=== PATIENT | female | born 1965 | race Hispanic/Latino ===

== ENCOUNTER 2019-01-08 13:23 | Emergency (ER) | payer OTHER, SELFPAY ==
--- OUTSIDE RECORDS SUMMARY | 2019-01-08 13:31 | XMS REPORT | Clinical Summary ---
:1965 Author Organization [facility] Address [address] [place] [address] Care Team Providers Name Role Phone Juanito Resendiz MD Primary Care Provider Allergies Active Allergy Reactions Severity Noted Date Comments Penicillins High 01/21/2017 Medications Medication Sig Dispensed Refills Start End Status Date Date metFORMIN (GLUCOPHAGE) Take 500 mg by 0 Active 500 mg tablet mouth 2 (two) times a day with meals. omeprazole (PriLOSEC) Take 20 mg by 0 Active 20 MG capsule mouth daily. meloxicam (MOBIC) 7.5 Take 1 tablet 10 tablet 0 Active mg tablet (7.5 mg total) 8 by mouth daily as needed for moderate pain for up to 10 doses. gabapentin (NEURONTIN) Take 600 mg by 0 Active 600 mg tablet mouth 3 (three) times a day. levalbuterol (XOPENEX Inhale 2 puffs 0 Active HFA) 45 mcg/actuation every 6 (six) inhaler hours as needed for wheezing or shortness of breath. ipratropium-albuterol Take 3 mL by 0 Active (DUO-NEB) 0.5-2.5 nebulization 4 mg/mL nebulizer (four) times a day. methylPREDNISolone TAKE 6 TABLETS 0 Active (MEDROL DOSEPAK) 4 mg ON DAY 1 9 tablet DIRECTED ON PACKAGE AND DECREASE BY 1 TAB EACH DAY FOR A TOTAL OF 6 DAYS fluticasone propionate SPRAY 2 SPRAYS 16 mL 0 Active (FLONASE) 50 INTO EACH 9 mcg/actuation nasal NOSTRIL EVERY spray DAY ondansetron (ZOFRAN, Take 1 tablet (4 20 tablet 0 Discontinued HYDROCHLORIDE,) 4 mg total) by 8 018 MG tabletIndications: mouth every 8 Partial tear of left (eight) hours as rotator cuff needed for nausea or vomiting. ondansetron (ZOFRAN) 4 Take 1 tablet (4 6 tablet 0 MG tablet mg total) by 8 018 mouth every 12 (twelve) hours as needed for nausea or vomiting for up to 3 days. azithromycin Take first 2 6 tablet 0 (ZITHROMAX) 250 MG tablets 9 019 tablet together, then 1 every day until finished. fluticasone propionate 2 sprays (100 15.8 mL 0 Discontinued (FLONASE) 50 mcg total) by 9 019 mcg/actuation nasal Each Nare route spray daily. oxymetazoline (AFRIN, 2 sprays into 15 mL 0 OXYMETAZOLINE,) 0.05 % each nostril 2 9 019 nasal spray (two) times a day for 5 days. fluticasone propionate SPRAY 2 SPRAYS 16 mL 0 Discontinued (FLONASE) 50 INTO EACH 9 019 mcg/actuation nasal NOSTRIL EVERY spray DAY Active Problems Problem Noted Date Diabetic polyneuropathy associated with type 2 diabetes mellitus 01/01/2019 Tethered cord 01/01/2019 Mixed conductive and sensorineural hearing loss of both ears 11/06/2018 Chronic mucoid otitis media of left ear 11/06/2018 Partial tear of left rotator cuff 09/11/2017 Sprain of left rotator cuff capsule 09/11/2017 Acute pain of left shoulder 09/04/2017 Encounters Date Type Specialty Care Team Description 01/06/2019 Refill Otolaryngology Henrry Barton MD 01/01/2019 Procedure visit Neurology Jannie, Diabetic polyneuropathy associated with type 2 diabetes mellitus (HCC) (Primary Dx); MD Erika Tethered cord (HCC) 12/03/2018 Refill Otolaryngology Henrry Barton MD 12/01/2018 Hospital Encounter Radiology Jordan, Ray Lumbar radiculopathy Hansel, MD 12/01/2018 Hospital Encounter Radiology Juanito Resendiz, Screening breast MD examination 11/24/2018 Transcribe Orders Access Juanito Resendiz Screening breast MD examination (Primary Dx) 11/24/2018 Transcribe Orders Access Aruna Tobin Screening breast Danisha, ACNP examination (Primary Dx) 11/20/2018 Transcribe Orders Access Keegan Ortega Lumbar radiculopathy MD Hansel (Primary Dx) 11/06/2018 Office Visit Otolaryngology Mick, Bilateral hearing loss, unspecified hearing loss type (Primary Dx); MD Henrry Chronic mucoid otitis media of left ear; Mixed conductive and sensorineural hearing loss of both ears; Conductive hearing loss, bilateral 09/27/2018 Travel 09/26/2018 - Emergency Emergency Medicine Carlos Singh MD Acute otitis media, unspecified otitis media type (Primary Dx); 09/27/2018 Chest pain, unspecified type; Hyperglycemia 05/19/2018 Emergency Emergency Medicine Sudhir Blanca Acute viral syndrome DO Cortez (Primary Dx) 04/21/2018 Hospital Encounter Radiology Juanito Resendiz Dorsalgia MD 04/21/2018 Transcribe Orders Access Aruna Tobin (Primary Danisha, ACNP Dx) after 01/07/2018 Family History Medical History Relation Name Comments Stroke Father CABG/Stent Mother Diabetes Mother Heart disease Mother Relation Name Status Comments Father Alive Mother Alive Social History Tobacco Use Types Packs/Day Years Used Date Former Smoker Cigarettes 5 Smokeless Tobacco: Former User Alcohol Use Drinks/Week oz/Week Comments No Sex Assigned at Date Recorded Not on file Job Start Date Occupation Industry Not on file Not on file Not on file Travel History Travel Start Travel End No recent travel history available. Last Filed Vital Signs Vital Sign Reading Time Taken Blood Pressure 155/75 09/27/2018 12:26 AM THREAD DRESSER Pulse 85 09/27/2018 12:26 AM THREAD DRESSER Temperature 37 C (98.6 F) 09/27/2018 12:26 AM THREAD DRESSER Respiratory Rate 18 09/27/2018 12:26 AM THREAD DRESSER Oxygen Saturation 98% 09/27/2018 12:26 AM THREAD DRESSER Inhaled Oxygen Concentration - - Weight 84.7 kg (186 lb 12.8 oz) 11/06/2018 1:39 PM CDT Height 149.9 cm (4' 11") 11/06/2018 1:39 PM CDT Body Mass Index 37.73 11/06/2018 1:39 PM CDT Plan of Treatment Health Maintenance Due Date Last Done Comments DIABETIC RETINAL EYE EXAM 1965 DIABETIC FOOT EXAM 1977 URINE MICROALBUMIN 1977 COLON CANCER SCREENING 2017 SHINGLES VACCINES (#1) 2017 INFLUENZA VACCINE 03/05/2019 BREAST CANCER SCREENING 12/01/2020 12/01/2018, 12/17/2017, 09/20/2014, Additional history exists Implants Implanted Type Area Junior Automation Engineer Device Shelf Model / Identifier Expiration Serial / Date Lot oNlalleulalia [id number], Aspirating Ablator 90 - [id number] Left: ARTHREX 09/04 AR [id number] / Implanted: Qty: 1 on 10/25/2017 by Jaren Reed MD IMPLANT Shoulder ORTHOPEDICS / DEVICES [id number] Procedures Procedure Name Priority Date/Time Associated Diagnosis Comments MRI LUMBAR SPINE WO Routine 12/01/2018 11:26 Lumbar radiculopathy Results for this CONTRAST AM CDT procedure are in the results section. MAMMO BREAST SCREEN Routine 12/01/2018 10:15 Screening breast Results for this TOMOSYNTHESIS AM CDT examination procedure are in BILATERAL the results section. COMPREHENSIVE HEARING Routine 11/06/2018 1:53 Chronic mucoid otitis TEST PM CDT media of left ear ECG ED PRELIMINARY Routine 09/26/2018 9:05 Results for this INTERPRETATION PM THREAD DRESSER procedure are in the results section. ESTIMATED GFR STAT 09/26/2018 9:05 Results for this PM THREAD DRESSER procedure are in the results section. B NATRIURETIC PEPTIDE STAT 09/26/2018 9:05 Results for this PM THREAD DRESSER procedure are in the results section. TROPONIN STAT 09/26/2018 9:05 Results for this PM THREAD DRESSER procedure are in the results section. CREATINE KINASE, TOTAL STAT 09/26/2018 9:05 Results for this (CPK) PM THREAD DRESSER procedure are in the results section. PARTIAL THROMBOPLASTIN STAT 09/26/2018 9:05 Results for this TIME (PTT) PM THREAD DRESSER procedure are in the results section. PROTHROMBIN TIME WITH STAT 09/26/2018 9:05 Results for this INR PM THREAD DRESSER procedure are in the results section. COMPREHENSIVE STAT 09/26/2018 9:05 Results for this METABOLIC PANEL PM THREAD DRESSER procedure are in the results section. HC COMPLETE BLD COUNT STAT 09/26/2018 9:05 Results for this W/AUTO DIFF PM THREAD DRESSER procedure are in the results section. XR CHEST 2 VW STAT 09/26/2018 8:41 Results for this PM THREAD DRESSER procedure are in the results section. ECG 12-LEAD STAT 09/26/2018 8:22 Results for this PM THREAD DRESSER procedure are in the results section. CT ABDOMEN PELVIS W STAT 05/19/2018 6:41 Results for this CONTRAST PM CDT procedure are in the results section. URINALYSIS SCREEN AND STAT 05/19/2018 5:45 Results for this MICROSCOPY, WITH PM CDT procedure are in REFLEX TO CULTURE the results section. XR PELVIS 1 OR 2 VW STAT 05/19/2018 4:50 Results for this PM CDT procedure are in the results section. ESTIMATED GFR STAT 05/19/2018 4:13 Results for this PM CDT procedure are in the results section. CREATINE KINASE, TOTAL STAT 05/19/2018 4:13 Results for this (CPK) PM CDT procedure are in the results section. TROPONIN STAT 05/19/2018 4:13 Results for this PM CDT procedure are in the results section. LIPASE LEVEL STAT 05/19/2018 4:13 Results for this PM CDT procedure are in the results section. COMPREHENSIVE STAT 05/19/2018 4:13 Results for this METABOLIC PANEL PM CDT procedure are in the results section. HC COMPLETE BLD COUNT STAT 05/19/2018 4:13 Results for this W/AUTO DIFF PM CDT procedure are in the results section. ECG 12-LEAD STAT 05/19/2018 3:57 Results for this PM CDT procedure are in the results section. ECG ED PRELIMINARY Routine 05/19/2018 3:50 Results for this INTERPRETATION PM CDT procedure are in the results section. POC GLUCOSE Routine 05/19/2018 3:44 Results for this PM CDT procedure are in the results section. XR LUMBAR SPINE Routine 04/21/2018 10:30 Dorsalgia Results for this COMPLETE 4+ VW AM CDT procedure are in the results section. after 01/07/2018 Results MRI Lumbar Spine Wo Contrast (12/01/2018 11:26 AM CDT) Specimen Narrative Performed At EXAMINATION: MRI LUMBAR SPINE WO CONTRAST [facility] CLINICAL HISTORY: M54.16 Radiculopathylumbar region, LUMBAR RADICULOPATHY COMPARISON:Lumbar spine x-rays from April 21, 2018. TECHNIQUE: Multiplanar multisequence noncontrast enhanced examination was performed of the Lumbar spine. FINDINGS: L5-S1: There is mild bulge and facet hypertrophy. 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 L4-5: There is mild bulge and facet hypertrophy without significant canal or foramen stenosis. L3-4: There is decreased T2 signal in the discs. There is bulge and facet hypertrophic changes. There is anterior and posterolateral indentation on the subarachnoid space with mild trefoil shape narrowing. 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 L2-3: There is mild bulge and facet hypertrophy. There is mild narrowing of the AP dimension of the central subarachnoid space. L1-2: There is mild bulge and facet hypertrophy. There is a tiny central protrusion. The distal cord ends at the L3 level. There is a partially fatty filum terminale. There is enlargement of the subarachnoid space in the lower lumbar region and there appears to be posterior location of the nerves in the subarachnoid space with a elongated course to exit the subarachnoid space. Portions of the bone surrounding the upper sacrum are absent, consistent with a congenital variant of normal. There are degenerative changes of the sacroiliac joints. The study was not performed for good evaluation of the soft tissue structures in the abdomen and pelvis. IMPRESSION: Low-lying cord with partially fatty filum terminale. Recommend correlation for cord and nerve root tethering. Degenerative changes in lumbar spine and upper sacroiliac joints. [facility]-[id number] Procedure Note Hm Interface, Radiology Results - 12/01/2018 1:17 PM CDT EXAMINATION: MRI LUMBAR SPINE WO CONTRAST CLINICAL HISTORY: M54.16 Radiculopathy lumbar region, LUMBAR RADICULOPATHY COMPARISON: Lumbar spine x-rays from April 21, 2018. TECHNIQUE: Multiplanar multisequence noncontrast enhanced examination was performed of the Lumbar spine. FINDINGS: L5-S1: There is mild bulge and facet hypertrophy. 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 L4-5: There is mild bulge and facet hypertrophy without significant canal or foramen stenosis. L3-4: There is decreased T2 signal in the discs. There is bulge and facet hypertrophic changes. There is anterior and posterolateral indentation on the subarachnoid space with mild trefoil shape narrowing. 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 L2-3: There is mild bulge and facet hypertrophy. There is mild narrowing of the AP dimension of the central subarachnoid space. L1-2: There is mild bulge and facet hypertrophy. There is a tiny central protrusion. The distal cord ends at the L3 level. There is a partially fatty filum terminale. There is enlargement of the subarachnoid space in the lower lumbar region and there appears to be posterior location of the nerves in the subarachnoid space with a elongated course to exit the subarachnoid space. Portions of the bone surrounding the upper sacrum are absent, consistent with a congenital variant of normal. There are degenerative changes of the sacroiliac joints. The study was not performed for good evaluation of the soft tissue structures in the abdomen and pelvis. IMPRESSION: Low-lying cord with partially fatty filum terminale. Recommend correlation for cord and nerve root tethering. Degenerative changes in lumbar spine and upper sacroiliac joints. [facility]-[id number] Performing Organization Address [facility] Phone Number [facility] [address] [place] [address] Mammo Breast Screen Tomosynthesis Bilateral (12/01/2018 10:15 AM CDT) Specimen Narrative Performed At EXAMINATION: MAMMO BREAST SCREEN TOMOSYNTHESIS BILATERAL [facility] COMPARISON:Mammograms dated 09/2014 through 12/2017 TECHNIQUE: Bilateral digital screening mammography was performed with tomosynthesis and interpreted using computer-assisted detection. CLINICAL HISTORY: 53-year-old female with intermittent left breast pain. No personal or family history of breast malignancy. The patient presents for routine screening. FINDINGS: There are scattered fibroglandular densities. Stable size asymmetry of the bilateral breasts, right smaller than left. There are no new suspicious masses, calcifications or distortions in either breast.There has been no significant interval change compared to prior. IMPRESSION: No specific mammographic features of breast malignancy. BI-RADS 2:BENIGN Recommend comparison with physical examination. In the absence of new clinical findings, the patient should return for bilateral screening mammography in 1 year. This facility is accredited by the [employer] for Mammography. A negative x-ray report should not delay biopsy if a dominant or clinically suspicious mass is present.Not all cancers are identified by x-ray. [id number] Performing Organization Address [facility] Phone Number [facility] [address] [place] [address] Comprehensive hearing test (11/06/2018 1:53 PM CDT)ECG ED Preliminary Interpretation - Not an Order (09/26/2018 9:05 PM THREAD DRESSER)Only the most recent of2 resultswithin the time period is included. Narrative Performed At Carlos Singh MD 09/27/20183:26 AM ECG ED Preliminary Interpretation - Not an Order Performed by: Carlos Singh MD Authorized by: Carlos Singh MD ECG reviewed by ED Physician in the absence of a diagnostic tech: yes Interpretation: Interpretation: normal Rate: ECG rate:79 ECG rate assessment: normal Rhythm: Rhythm: sinus rhythm Ectopy: Ectopy: none QRS: QRS axis:Normal QRS intervals:Normal Conduction: Conduction: normal ST segments: ST segments:Normal T waves: T waves: inverted Inverted:V2 Comments: Poor R wave progression Estimated GFR (09/26/2018 9:05 PM THREAD DRESSER)Only the most recent of2 resultswithin the time period is included. Pathologist [facility] Estimated GFR >=90 mL/min/1.73 [facility] Comment: m2 [facility] CatergoryUnitsInterpretation G1 >=90 Normal or high G2 60-89Mildly decreased [id number] to moderately decreased O3g55-71Tnkknsjoti to severely decreased G4 15-29Severely decreased G5 <15Kidney failure The eGFR was calculated using the Chronic Kidney Disease Epidemiology Collaboration (CKD-EPI) equation. Interpretation is based on recommendations of the National Kidney Foundation-Kidney Disease Outcomes Quality Initiative (NKF-KDOQI) published in 2014. Specimen Plasma specimen Performing Organization Address City/State/Zipcode Phone Number [facility] DEPARTMENT OF PATHOLOGY AND [address] [place] [address] GENOMIC MEDICINE [facility] [address] [place] [address] HOSPITAL Troponin (09/26/2018 9:05 PM THREAD DRESSER)Only the most recent of2 resultswithin the time period is included. Pathologist [facility] Troponin <0.300 0.000 - 0.300 [facility] Comment: ng/mL [facility] 0.30 - 1.49 ng/mlMay indicate increased risk of acute coronary syndrome. >=1.5 ng/mlConsistent with acute myocardial infarction. The diagnostic value of a single normal or non-diagnostic result is questionable.Serial samples at 2-6 hour intervals are required to rule out acute myocardial injury. Specimen Plasma specimen Performing Organization Address [facility] Phone Number [facility] DEPARTMENT PATHOLOGY AND [address] [place] [address] Partial thromboplastin time, activated (09/26/2018 9:05 PM THREAD DRESSER) [facility] PTT 28.0 23.0 - 36.0 [facility] Comment: [facility] PTT therapeutic range for unfractionated heparin is 61.0-112.0 seconds which corresponds to Anti-Xa 0.3-0.7 U/ml. Specimen Blood Performing Organization Address [facility] Phone Number [facility] DEPARTMENT OF PATHOLOGY AND [address] [place] [address] Prothrombin time with INR (09/26/2018 9:05 PM THREAD DRESSER) [facility] Prothrombin time 12.3 11.5 - 14.5 [facility] INR 0.9 [facility] Comment: [facility] The International Normalized Ratio (INR) is a therapeutic [facility] monitoring tool for patients who are stable on oral anticoagulant therapy. An INR of 2.0-3.0 is suggested for deep vein thrombosis/pulmonary embolism. Specimen Blood Performing Organization Address [facility] Phone Number [facility] DEPARTMENT PATHOLOGY AND [address] [place] [address] CBC with platelet and differential (09/26/2018 9:05 PM THREAD DRESSER)Only the most recent of2 resultswithin the time period is included. [facility] WBC 7.88 4.50 - 11.00 k/uL [facility] RBC 4.93 4.20 - 5.50 m/uL [facility] HGB 13.1 12.0 - 16.0 g/dL [facility] HCT 40.2 37.0 - 47.0 % [facility] MCV 81.5 (L) 82.0 - 100.0 fL [facility] MCH 26.6 (L) 27.0 - 34.0 pg [facility] MCHC 32.6 31.0 - 37.0 g/dL [facility] RDW - SD 38.2 37.0 - 55.0 fL [facility] MPV 10.2 8.8 - 13.2 fL [facility] Platelet count 277 150 - 400 k/uL [facility] Nucleated RBC 0.00 /100 WBC [facility] Neutrophils 48.6 39.0 - 69.0 % [facility] Lymphocytes 39.7 25.0 - 45.0 % [facility] Monocytes 5.7 0.0 - 10.0 % [facility] Eosinophils 4.9 0.0 - 5.0 % [facility] Basophils 0.6 0.0 - 1.0 % [facility] Specimen Blood Performing Organization Address City/[facility] Phone Number [facility] DEPARTMENT PATHOLOGY AND [address] [place] [address] B natriuretic peptide (09/26/2018 9:05 PM THREAD DRESSER) Pathologist [facility] BNP 11 0 - 100 pg/mL [facility] Specimen Blood Performing Organization Address [facility] Phone Number [facility] DEPARTMENT OF PATHOLOGY AND [address] [place] [address] Creatine kinase, total (CPK) (09/26/2018 9:05 PM THREAD DRESSER)Only the most recent of2 resultswithin the time period is included. Pathologist [facility] Creatine kinase 57 26 - 192 U/L [facility] Specimen Plasma specimen Performing Organization Address [facility] Phone Number [facility] DEPARTMENT OF PATHOLOGY AND [address] [place] [address] Comprehensive metabolic panel (09/26/2018 9:05 PM THREAD DRESSER)Only the most recent of2 resultswithin the time period is included. Sodium 138 135 - 148 [facility] mEq/L [facility] Potassium 3.9 3.5 - 5.0 [facility] mEq/L [facility] Chloride 100 98 - 112 mEq/L [facility] CO2 28 24 - 31 mEq/L [facility] Anion gap 10@ANIO 7 - 15 mEq/L [facility] BUN 11 6 - 20 mg/dL [facility] Creatinine 0.50 0.50 - 0.90 [facility] mg/dL [facility] Glucose 392 (H) 65 - 99 mg/dL [facility] Calcium 9.7 8.3 - 10.2 [facility] mg/dL [facility] Protein 7.8 6.3 - 8.3 g/dL [facility] Comment: [facility] 4.6-7.0 g/dL 1 week 4.4-7.6 g/dL 7 months-1year5.1-7.3 g/dL 1-2 years5.6-7.5 g/dL >3 years6.0-8.0 g/dL 18-150 6.3-8.3 g/dL Albumin 4.3 3.5 - 5.0 g/dL [facility] A/G ratio 1.2 0.7 - 3.8 [facility] Alkaline phosphatase 114 (H) 35 - 104 U/L [facility] AST 16 10 - 35 U/L [facility] ALT 19 5 - 50 U/L [facility] Total bilirubin 0.3 0.0 - 1.2 [facility] mg/dL [facility] Specimen Plasma specimen Performing Organization Address City/State/Zipcode Phone Number [facility] DEPARTMENT OF PATHOLOGY AND [address] [place] [address] GENOMIC MEDICINE [facility] [address] XR Chest 2 Vw (09/26/2018 8:41 PM THREAD DRESSER) Specimen Narrative Performed At EXAMINATION:XR CHEST 2 VW [facility] CLINICAL HISTORY:cp TECHNIQUE:XR CHEST 2 VW COMPARISON:Chest radiograph dated 01/21/2017 FINDINGS: Lines/tubes:None. Heart and mediastinum:Unremarkable Lungs:The lungs are well inflated. There is no evidence of pneumonia or pulmonary edema. Pleura:There is no pleural effusion. There is no pneumothorax. Bones and Soft Tissues:There is partial fusion of the right fourth and fifth ribs. There is no acute or suspicious osseous abnormality. IMPRESSION: No acute cardiopulmonary abnormality. [facility]-[id number] Procedure Note Hm Interface, Radiology Results Incoming - 09/26/2018 8:57 PM THREAD DRESSER EXAMINATION: XR CHEST 2 VW CLINICAL HISTORY: cp TECHNIQUE: XR CHEST 2 VW COMPARISON: Chest radiograph dated 01/21/2017 FINDINGS: Lines/tubes: None. Heart and mediastinum: Unremarkable Lungs: The lungs are well inflated. There is no evidence of pneumonia or pulmonary edema. Pleura: There is no pleural effusion. There is no pneumothorax. Bones and Soft Tissues: There is partial fusion of the right fourth and fifth ribs. There is no acute or suspicious osseous abnormality. IMPRESSION: No acute cardiopulmonary abnormality. [facility]-[id number] Performing Organization Address City/[facility] Phone Number [facility] [address] [place] [address] ECG 12 lead (09/26/2018 8:22 PM THREAD DRESSER)Only the most recent of2 resultswithin the time period is included. Ventricular rate 79 [facility] Atrial rate 79 [facility] CO interval 158 [facility] QRSD interval 94 [facility] QT interval 396 [facility] QTC interval 454 [facility] P axis 1 49 [facility] QRS axis 1 16 [facility] T wave axis 4 [facility] EKG impression Normal sinus [facility] rhythm-Nonspecific T wave abnormality-Abnormal ECG-In automated comparison with ECG of 19-MAY-2018 15:57,-No significant change was found- Specimen Narrative Performed At Performing Organization Address [facility] Phone Number [facility] Side.Cr [address] [place] [address] CT Abdomen Pelvis W Contrast (05/19/2018 6:41 PM CDT) Specimen Narrative Performed At EXAMINATION:[facility] CLINICAL HISTORY:Abd painunspecified, hx of hysterectomy TECHNIQUE: Multiple axial images of the abdomen and pelvis were obtained following intravenous administration of iodinated contrast. Sagittal and coronal computerized reformatted images were also obtained.Automatic exposure control and iterative reconstruction techniques used to reduce dose. COMPARISON:February 12, 2015 FINDINGS: Mild fatty infiltration of the liver without evidence of focal mass. The gallbladder, spleen, pancreas, adrenals and kidneys are within normal limits There is no evidence of appendicitis The small bowel and the colon are within normal limits Pelvis: No significant lymphadenopathy, solid masses or free fluid Degenerative changes are present throughout the bony structures without evidence of a suspicious focal lesion. Lung bases are clear IMPRESSION: Mild fatty infiltration liver. No acute abnormalities are identified [facility]-[id number] Procedure Note [facility], Radiology Results Incoming - 05/19/2018 6:46 PM CDT EXAMINATION: CT ABDOMEN PELVIS W CONTRAST CLINICAL HISTORY: Abd pain unspecified, hx of hysterectomy TECHNIQUE: Multiple axial images of the abdomen and pelvis were obtained following intravenous administration of iodinated contrast. Sagittal and coronal computerized reformatted images were also obtained.Automatic exposure control and iterative reconstruction techniques used to reduce dose. COMPARISON: February 12, 2015 FINDINGS: Mild fatty infiltration of the liver without evidence of focal mass. The gallbladder, spleen, pancreas, adrenals and kidneys are within normal limits There is no evidence of appendicitis The small bowel and the colon are within normal limits Pelvis: No significant lymphadenopathy, solid masses or free fluid Degenerative changes are present throughout the bony structures without evidence of a suspicious focal lesion. Lung bases are clear IMPRESSION: Mild fatty infiltration liver. No acute abnormalities are identified [facility]-[id number] Performing Organization Address City/State/Zipcode Phone Number [facility] [address] [place] [address] Urinalysis screen and microscopy, with reflex to culture (05/19/2018 5:45 PM CDT) Specimen site Clean catch [facility] DEPARTMENT OF PATHOLOGY AND GENOMIC MEDICINE Color, UA Yellow [facility] DEPARTMENT OF PATHOLOGY AND GENOMIC MEDICINE Appearance, UA Clear [facility] DEPARTMENT OF PATHOLOGY AND GENOMIC MEDICINE Specific gravity, UA 1.036 (H) 1.001 - 1.035 [facility] DEPARTMENT OF PATHOLOGY AND GENOMIC MEDICINE pH, UA 5.0 5.0 - 8.5 [facility] DEPARTMENT OF PATHOLOGY AND GENOMIC MEDICINE Protein, UA Negative Negative [facility] DEPARTMENT OF PATHOLOGY AND GENOMIC MEDICINE Glucose, UA 3+ (A) Negative [facility] DEPARTMENT OF PATHOLOGY AND GENOMIC MEDICINE Ketones, UA 2+ (A) Negative [facility] DEPARTMENT OF PATHOLOGY AND GENOMIC MEDICINE Bilirubin, UA Negative Negative [facility] DEPARTMENT OF PATHOLOGY AND GENOMIC MEDICINE Blood, UA Negative Negative [facility] DEPARTMENT OF PATHOLOGY AND GENOMIC MEDICINE Nitrite, UA Negative Negative [facility] DEPARTMENT OF PATHOLOGY AND GENOMIC MEDICINE Urobilinogen, UA Negative <2.0 [facility] DEPARTMENT OF PATHOLOGY AND GENOMIC MEDICINE Leukocyte esterase, Negative Negative [facility] DEPARTMENT OF UA PATHOLOGY AND GENOMIC MEDICINE Epithelial cells, UA Many /HPF [facility] DEPARTMENT OF PATHOLOGY AND GENOMIC MEDICINE WBC, UA 0-5 0 - 4 /HPF [facility] DEPARTMENT OF PATHOLOGY AND GENOMIC MEDICINE RBC, UA 0-5 0 - 5 /HPF [facility] DEPARTMENT OF PATHOLOGY AND GENOMIC MEDICINE Bacteria, UA Trace None seen [facility] DEPARTMENT OF PATHOLOGY AND GENOMIC MEDICINE Yeast, UA None seen [facility] DEPARTMENT OF PATHOLOGY AND GENOMIC MEDICINE Yeast with None seen [facility] DEPARTMENT OF pseudohyphae, PATHOLOGY AND GENOMIC MEDICINE Specimen Urine Performing Organization Address City/State/Zipcode Phone Number [facility] DEPARTMENT OF PATHOLOGY AND [address] [place] [address] [facility] XR Pelvis 1 Or 2 Vw (05/19/2018 4:50 PM CDT) Specimen Narrative Performed At PROCEDURE:XR PELVIS 1 OR 2 VW [facility] CLINICAL HISTORY:acute right hip pain COMPARISON:None. TECHNIQUE: Multiple AP views of the pelvis are submitted. FINDINGS: No fracture, dislocation, periosteal reaction or bone destruction is identified. No acute bony abnormality is seen. If the patient's symptoms persist or deteriorate, follow-up radiograph in 10 days time is recommended, if clinically indicated. IMPRESSION: 1. There is no acute fracture or subluxation. [id number] . Procedure Note Interface, Radiology Results Incoming - 05/19/2018 5:10 PM CDT PROCEDURE: XR PELVIS 1 OR 2 VW CLINICAL HISTORY: acute right hip pain COMPARISON: None. TECHNIQUE: Multiple AP views of the pelvis are submitted. FINDINGS: No fracture, dislocation, periosteal reaction or bone destruction is identified. No acute bony abnormality is seen. If the patient's symptoms persist or deteriorate, follow-up radiograph in 10 days time is recommended, if clinically indicated. IMPRESSION: 1. There is no acute fracture or subluxation. [id number] . Performing Organization Address [facility]/Zipcode Phone Number [facility] [address] [place] [address] Lipase level (05/19/2018 4:13 PM CDT) Lipase 18 13 - 60 U/L [facility] DEPARTMENT OF PATHOLOGY AND GENOMIC MEDICINE Specimen Plasma specimen Performing Organization Address [facility] Phone Number [facility] DEPARTMENT OF PATHOLOGY AND [address] [place] [address] GENOMIC MEDICINE POC glucose (05/19/2018 3:44 PM CDT) POC glucose 139 (H) 65 - 99 mg/dL [facility] DEPARTMENT OF Comment: PATHOLOGY AND Meter ID: [id number] GENOMIC MEDICINE Trenching Machine Operator: Chrissie Ernandez Specimen Performing Organization Address [facility] Phone Number [facility] DEPARTMENT OF PATHOLOGY AND [id number] [place] [address] [place] [address] GENOMIC MEDICINE XR Lumbar Spine Complete 4+ Vw (04/21/2018 10:30 AM CDT) Specimen Narrative Performed At EXAMINATION:XR LUMBAR SPINE COMPLETE 4VW [facility] CLINICAL HISTORY:M54.9 Dorsalgiaunspecified, Dorsalgiaunspecified COMPARISON:None. FINDINGS: 5 lumbar vertebrae. Changes from previous wide laminectomy L5-S1 and L4-5. Mild disc space narrowing L5-S1 No compressive abnormality. Mild degenerative facet hypertrophy L3-4 through L5-S1 bilaterally. No spondylolysis or spondylolisthesis IMPRESSION: Previous laminectomy changes L4-5 L5-S1 Mild degenerative facet hypertrophy Mild degenerative disc space narrowing L5-S1 [id number] Procedure Note Hm Interface, Radiology Results Incoming - 04/21/2018 12:09 PM CDT EXAMINATION: XR LUMBAR SPINE COMPLETE 4 VW CLINICAL HISTORY: M54.9 Dorsalgia unspecified, Dorsalgia unspecified COMPARISON: None. FINDINGS: 5 lumbar vertebrae. Changes from previous wide laminectomy L5-S1 and L4-5. Mild disc space narrowing L5-S1 No compressive abnormality. Mild degenerative facet hypertrophy L3-4 through L5 -S1 bilaterally. No spondylolysis or spondylolisthesis IMPRESSION: Previous laminectomy changes L4-5 L5-S1 Mild degenerative facet hypertrophy Mild degenerative disc space narrowing L5-S1 [id number] Performing Organization Address City/State/Zipcode Phone Number [facility] [address] [place] [address] after 01/07/2018 Advance Directives Patient has advance care planning documents on file. For more information, please contact:Quintanilla [address] [place] [address]
--- NOTE | 2019-01-08 14:36 | RAD REPORT ---
EXAM DESCRIPTION: RAD - Lumbar Spine 3 Views - 01/08/2019 2:26 pm CLINICAL HISTORY: Back pain FINDINGS: No fracture or dislocation seen. Mild spondylosis
[2019-01-08 14:42] LABS: Urine Blood NEGATIVE (NEG); Urine Glucose 3+ (NEG); Urine Protein NEGATIVE (NEG); Urine Specific Gravity 1.025 (1.005-1.030)
[2019-01-08] MEDS ORDERED: IBUPROFEN 200 MG TAB PO ONE (14:51)
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
[2019-01-08 18:44] VITALS: BP 112/72; TEMP 98.1; O2SAT 96
== END 2019-01-08 15:21 | disposition home or self-care (01) ==
LOC: ER 13:23
DX: M54.5 Low back pain (principal); E11.9 Type 2 diabetes mellitus without complications; E78.00 Pure hypercholesterolemia, unspecified; J45.909 Unspecified asthma, uncomplicated; Z88.0 Allergy status to penicillin; Z79.84 Long term (current) use of oral hypoglycemic drugs
CPT/HCPCS: 72100; 81003; 81025; 99283